=== PATIENT | male | born 1990 | race Asian ===

== ENCOUNTER 2019-02-16 03:18 | Emergency (ER) | payer OTHER ==
[~2019-02-16] VITALS: Ht 167.6 cm; Wt 68.0 kg
[2019-02-16 03:18] VITALS: BP 125/85
--- NOTE | 2019-02-16 03:20 | NUR ---
BROUGHT IN BY AMBULANCE FROM HOME FOR ALOC. PT. NOTED BY MOM TO BE ACTING BIZARRE,TALKING TO HIMSELF,AGITATED,UNABLE TO SLEEP. TOOK ZYPEXA 10 MG TABS 4 TABS 5HOURS INTERVALS. HIS USUAL DOSE IS ONLY 1 TABLET BID. TACHYCARDIC ON SCENE, REFUSED BLOOD SUGAR CHECK. [facility] PLACED IN BED 5,CHANGED INTO A GOWN AND HOOKED TO THE MONITOR. PT. ANSWERS APPROPRIATELY. ALERT,ORIENTED X 4. DENIES SUICIDAL IDEATION. Addendum: 02/16/19 at 0523 by [id number] *[id number]
--- NOTE | 2019-02-16 03:43 | NUR ---
CALLED UP POISON CONTROL AND TALKED TO LETI.TO OBSERVE PATIENT FOR 6 HOURS, FOR SEIZURE, DEPRESSION, EKG . LAB WORKS.
--- NOTE | 2019-02-16 03:46 | NUR ---
PT BELONGINGS ARE WITH PT MOM
--- NOTE | 2019-02-16 03:50 | NUR ---
MOM IS AT BEDSIDE WITH PT.
--- NOTE | 2019-02-16 03:51 | NUR ---
Note paris in EDM - 02/16/19 at 0425 by [id number] DISCHARGED STABLE. PRESCRIPTION,COPY OF LABS,VERBAL AND WRITTEN AFTERCARE INSTRCU==UCTIONS GIVEN TO PATIENT AND FAMILY. VERBALIZED UNDERSTANDING.
--- NOTE | 2019-02-16 04:09 | NUR ---
BLOOD DRAWN BY LAB.ANESTHESIOLOGISTS' ASSISTANT.
[2019-02-16 04:16] LABS: BASOPHILS % (AUTO) 0.5 % (0.0-2.0); EOSINOPHILS % (AUTO) 0.1 % (0.0-4.0); HEMOGLOBIN 17.7 g/dL (12.0-18.0); LYMPHOCYTES # (AUTO) 1.2 K/uL (2.0-11.5); LYMPHOCYTES % (AUTO) 15.5 % (20.5-51.1); MEAN CORPUSCULAR HEMOGLOBIN 31 pg (27-31); MEAN CORPUSCULAR HGB CONC 34 g/dL (33-37); MEAN CORPUSCULAR VOLUME 90.1 fL (80-94); MONOCYTES # (AUTO) 0.7 K/uL (0.8-1.0); MONOCYTES % (AUTO) 9.4 % (1.7-9.3); NEUTROPHILS # (AUTO) 5.8 K/uL (1.8-7.7); NEUTROPHILS % (AUTO) 74.5 % (42.2-75.2); PLATELET COUNT (AUTO) 292 K/uL (140-450); RED BLOOD CELL COUNT(AUTO) 5.77 MIL/uL (4.20-6.10); RED CELL DISTRIBUTION WIDTH 13.3 % (11.6-13.7); WHITE BLOOD COUNT (AUTO) 7.8 K/uL (4.8-10.8)
--- NOTE | 2019-02-16 04:18 | NUR ---
URINE SPECIMEN COLLECTED AND SENT TO THE LAB.
[2019-02-16 04:24] LABS: APPEARANCE,URINE CLEAR (CLEAR); BILIRUBIN,URINE NEGATIVE (NEGATIVE); BLOOD, URINE NEGATIVE (NEGATIVE); COLOR,URINE YELLOW (YELLOW); LEUKOCYTE ESTERASE ,URINE NEGATIVE (NEGATIVE); NITRITE, URINE NEGATIVE (NEGATIVE); UGLUCOSE NEGATIVE (NEGATIVE)
--- NOTE | 2019-02-16 04:25 | NUR ---
PT. BECAME AGITATED,ATTEMPTED GETTING OUT OF THE UNIT. ER-MD MADE AWARE. NEW ORDER GIVEN.
[2019-02-16] MEDS ORDERED: NACL 0.9% 1,000 ML IV ONE (04:30)
[2019-02-16 04:35] LABS: RBC,URINE 0-5 /HPF (0-5); WBC,URINE 0-5 /HPF (0-5)
--- NOTE | 2019-02-16 04:37 | NUR ---
GAUGE 18 IV LINE ESTABLISHED TO THE LEFT FOREARM. NS 1 LITER BOLUS GIVEN ORDERED.
[2019-02-16 04:41] LABS: BARBITURATE, URINE NEG. ng/ml (NEG <=200); BENZODIAZEPINE, URINE NEG. ng/mL (NEG <=200); CANNABINOID, URINE NEG. ng/mL (NEG <=50); COCAINE, URINE NEG. ng/mL (NEG <=300); OPIATE, URINE NEG. ng/mL (NEG <=2000); PHENCYCLIDINE SCREEN,URINE NEG. ng/mL (NEG <=25)
--- NOTE | 2019-02-16 04:55 | NUR ---
PT. PULLED OUT IV LINE. GAUGE 18 IV LINE ESTABLISHED TO THE LEFT HAND. IV FLUIDS RESTARTED.
[2019-02-16 05:01] LABS: ANION GAP 15.8 (8-16); CARBON DIOXIDE 21.8 mmol/L (21-32); CHLORIDE 104 mmol/L (98-107); CREATININE 1.2 mg/dL (0.7-1.3); GFR ARICAN-AMERICAN 91 mL/min (>90); GLUCOSE 128 mg/dL (74-106); POTASSIUM 3.6 mmol/L (3.5-5.1); SODIUM SERUM 138 mmol/L (136-145); UREA NITROGEN, BLOOD 12 mg/dL (7-18)
[2019-02-16 05:14] LABS: TOTAL BILIRUBIN 0.8 mg/dL (0.0-1.0)
[2019-02-16 05:15] LABS: ALBUMIN 3.9 g/dL (3.4-5.0)
[2019-02-16 05:16] LABS: ACETAMINOPHEN < 0.5 ug/ml (10-30)
--- NOTE | 2019-02-16 05:25 | NUR ---
PT.AGAIN PULLED OUT IV AND TRIED TO GET OUT OF BED. ER-MD MADE AWARE, CAME BY BEDSIDE TO RE-EVALUATE AND DISCUSS PLAN OF CARE WITH PT'S MOTHER. VS ARE OTHERWISE STABLE.
[2019-02-16 05:27] LABS: ASPARTATE AMINOTRANSFERASE 12 U/L (15-37); SALICYLATE < 2.8 mg/dL (2.8-20.0)
[2019-02-16] MEDS ORDERED: diphenhydrAMINE 50 MG/ML VIAL IM ONE (05:35)
[2019-02-16] MEDS ORDERED: LORazepam 2 MG/ML VIAL IM ONE (05:35)
--- NOTE | 2019-02-16 05:43 | NUR ---
ATIVAN 2 MG IM AND BENADRYL 50 MG IM GIVEN ORDERED FOR AGITATION.
--- NOTE | 2019-02-16 06:00 | NUR ---
LYNDSAY FROM [facility] CALLED BACK. UPDATE ON PATIENT GIVEN. SHE SAID TO FAX COPY OF 0269 MD LEROY'S NOTES,LABS.TO . PT. SLEEPING,NOT IN ACUTE DISTRESS. NO PAIN OR DISCOMFORT NOTED. VS REMAIN STABLE.
--- NOTE | 2019-02-16 07:00 | NUR ---
[facility] CALLED AND GOT UPDATE AND ADDITIONAL INFO ON PATIENT. SHE SAID SHE WILL TALK TO THE MD AND SHE WILL CALL BACK WHENEVER PT.HAS BEEN ACCEPTED. SHE ALSO SAID NO NEED TO GIVE REPORT PRIOR TO TRANSFERRING. PT. ASLEEP. REMAINS STABLE AND PAIN FREE. MOTHER AT BEDSIDE. WILL ENDORSE CARE TO AM SHIFT.
--- NOTE | 2019-02-16 07:10 | NUR ---
ENDORSED CARE TO AM SHIF NURSE MICHELLE THAKUR.
--- NOTE | 2019-02-16 07:10 | NUR ---
RECEIVED REPORT FRON UNIT MANAGER RN RN
--- NOTE | 2019-02-16 08:14 | NUR ---
PT RESTING IN BED, MOTHER AT BEDSIDE. PT AROUABLE TO NAME, VSS.
--- NOTE | 2019-02-16 08:47 | NUR ---
SPOKE WKimberly DONALD FROM [facility] AT THIS TIME, STATED HE WOULD BE INCONTACT WITH [facility] TO ARRANGE TRANSPORT
--- NOTE | 2019-02-16 09:09 | NUR ---
VAL FROM POISON CONTROL CALLED FOR FOLLOW UP ON PT.
--- NOTE | 2019-02-16 10:30 | NUR ---
SPOKE WITH BAIRON AT [facility] TO GIVE REPORT.
--- NOTE | 2019-02-16 10:50 | NUR ---
[facility] at bedside.
--- NOTE | 2019-02-16 10:53 | NUR ---
Patient to be transferred to [facility]. Is being transferred due to 5150 HOLD/PSYCH. Receiving facility has accepting physician and available space. ER physician has signed transfer form. Patient or responsible constitution party has agreed to transfer and signed form. Patient belongings inventoried and will be sent with patient. Copy of nursing notes, lab reports, EKG, Physicians Orders and X-rays to be sent with patient. Report called to BAIRON at receiving facility. [facility] ambulance service has been called for transfeR, AND HAS PICKED UP PT.
[2019-02-16 10:54] VITALS: BP 103/63
--- NOTE | 2019-02-19 07:37 | NUR ---
Late entry. Confirmed with RN that 0.9 NS 1000ml IV completed at 0600
== END 2019-02-16 10:53 ==
LOC: MED 03:18
DX: T43.591A Poisoning by other antipsychotics and neuroleptics, accidental (unintentional), initial encounter (principal); F15.90 Other stimulant use, unspecified, uncomplicated; F20.9 Schizophrenia, unspecified; Z88.8 Allergy status to other drugs, medicaments and biological substances; Y92.89 Other specified places as the place of occurrence of the external cause
CPT/HCPCS: 36415; 80053; 80305; 81001; 85025; 87086; 96372; 99285; G0480; G0482; J1200; J2060; J7030

== ENCOUNTER 2021-01-24 16:43 | Emergency (ER) | payer OTHER ==
[~2021-01-24] VITALS: Ht 170.2 cm; Wt 68.0 kg
[2021-01-24 16:43] VITALS: BP 134/72
--- NOTE | 2021-01-24 16:43 | NUR ---
BIBA TO BED 5
--- NOTE | 2021-01-24 17:02 | NUR ---
30 YO MALE BIBA FOR 5150 HOLD PER MEDICS MOTHER FOUND PATIENT WITH LACERATION TO L WRIST. PT PLACED ON 5150 HOLD BY [facility] FOR DTS. PER HOLD PT STATED THAT HE TRIED TO KILL HIMSELF. PER MOTHER PT HAS SUICIDE TENDENCIES. LACERATION IS APPROX 2 INCHES, BLEEDING CONTROLLED. PT REFUSING TO ANSWER ASSESSMENT QUESTIONS. PMH: BIPOLAR, SCHIZOPHRENIA ALLERGIES: RISPERIDONE.
--- NOTE | 2021-01-24 17:12 | NUR ---
SUICIDE RISK ASSESSMENT UNABLE TO BE OBTAINED PT REFUSING TO ANSWER QUESTIONS. WILL ATTEMPT AT A LATER TIME.
--- NOTE | 2021-01-24 17:34 | NUR ---
DR SALAZAR AT BEDSIDE EVALUATING PT.
--- NOTE | 2021-01-24 17:53 | NUR ---
IRRIGATED WITH NORMAL SALINE AND BETADINE. ERMD NOTIFIED
--- NOTE | 2021-01-24 18:00 | NUR ---
LAB SAMPLES DRAWN AND HANDED TO [employer] ECONOMIST
[2021-01-24 18:24] LABS: BASOPHILS % (AUTO) 0.2 % (0.0-2.0); EOSINOPHILS % (AUTO) 0.3 % (0.0-4.0); HEMATOCRIT 50.4 % (36-52); LYMPHOCYTES # (AUTO) 0.8 K/uL (2.0-11.5); LYMPHOCYTES % (AUTO) 11.9 % (20.5-51.1); MEAN CORPUSCULAR HEMOGLOBIN 31 pg (27-31); MEAN CORPUSCULAR HGB CONC 34 g/dL (33-37); MONOCYTES # (AUTO) 0.7 K/uL (0.8-1.0); MONOCYTES % (AUTO) 10.3 % (1.7-9.3); NEUTROPHILS # (AUTO) 5.3 K/uL (1.8-7.7); NEUTROPHILS % (AUTO) 77.3 % (42.2-75.2); PLATELET COUNT (AUTO) 313 K/uL (140-450); RED BLOOD CELL COUNT(AUTO) 5.54 MIL/uL (4.20-6.10); RED CELL DISTRIBUTION WIDTH 13.8 % (11.6-13.7); WHITE BLOOD COUNT (AUTO) 6.9 K/uL (4.8-10.8)
[2021-01-24 19:22] LABS: ALBUMIN 3.9 g/dL (3.4-5.0); ASPARTATE AMINOTRANSFERASE 23 U/L (15-37); CARBON DIOXIDE 23.9 mmol/L (21-32); CHLORIDE 101 mmol/L (98-107); CREATININE 1.1 mg/dL (0.6-1.3); GFR ARICAN-AMERICAN 100 mL/min (>90); GLUCOSE 115 mg/dL (74-106); POTASSIUM 3.9 mmol/L (3.5-5.1); SODIUM SERUM 139 mmol/L (136-145); THYROID STIMULATING HORMONE 0.84 uIU/mL (0.34-3.74); TOTAL BILIRUBIN 0.7 mg/dL (0.0-1.0); UREA NITROGEN, BLOOD 14 mg/dL (7-18)
--- NOTE | 2021-01-24 19:22 | NUR ---
REPORT AND TRANSFER OF CARE GIVEN TO OFE CASTELAN AT THIS TIME.
[2021-01-24 19:30] LABS: ACETAMINOPHEN < 0.5 ug/ml (10-30); SALICYLATE < 2.8 mg/dL (2.8-20.0)
[2021-01-24] MEDS ORDERED: LORazepam 2 MG/ML VIAL IVP ONE (19:35)
[2021-01-24] MEDS ORDERED: LORazepam 2 MG/ML VIAL IM ONE (19:55)
--- NOTE | 2021-01-24 20:00 | NUR ---
AWAKE, AMBULATED TO BR. FOOD OFFERED
--- NOTE | 2021-01-25 00:55 | NUR ---
RESTING IN BED WITH EYES CLOSED, RESPIRATIONS REGULAR AND UNLABORED
--- NOTE | 2021-01-25 04:00 | NUR ---
RESTING WITH EYES CLOSED, RESPIRATIONS REGULAR AND UNLABORED
--- NOTE | 2021-01-25 06:00 | NUR ---
RESTING WITH EYES CLOSED. AWAKENS WITH EASE FOR VS THEN RETURNS TO SLEEP. VOICES NO COMPLAINTS
--- NOTE | 2021-01-25 07:36 | NUR ---
REPORT RECEIVED FROM OFE CASTELAN. TRANSFER OF CARE RECIEVED
--- NOTE | 2021-01-25 09:43 | NUR ---
PT CURRENTLY SLEEPING BEDSIDE WITH EYES CLOSED. BED IN LOWEST POSITION WITH SIDERAIL X1 UP. EQUAL CHEST RISE AND FALL NOTED. WILL CONTINUE TO MONITOR. FOOD HAS BEEN LEFT BEDSIDE FOR PT
--- NOTE | 2021-01-25 13:17 | NUR ---
PT CURRENTLY RESTING WITH EYES CLOSED. EQUAL CHEST RISE AND FALL NOTED. MOTHER IS CURRENTLY BEDSIDE WITH PT. VITAL SIGNS STABLE. BED IN LOWEST POSITION WITH SIDERAIL X1 UP. WILL CONTINUE TO MONITOR
--- NOTE | 2021-01-25 15:28 | NUR ---
SPOKE WITH LIOR FROM [facility] IN BEHAVIORAL UNIT. PROVIDED REPORT ON PATIENT STATUS. PER LIOR ALEXANDER WILL LOOK FOR BED FOR PT TO BE TRANSFERED TO AND WILL PROVIDE ETA ONCE A BED HAS BEEN FOUND. PER LIOR 3855 AND CHART NEED TO BE FAXED OVER TO [phone] TO CONTINUE TO [facility] LOOKING FOR ROOM
--- NOTE | 2021-01-25 15:37 | NUR ---
PT CURRENTLY RESTING ON HIS SIDE WITH EYES OPEN. PT DENIES ANY PAIN AT THIS MOMENT. VITAL SIGNS STABLE. MOM STILL BEDSIDE WITH PT. BED IN LOWEST POSITION WITH SIDERAIL X1 UP. WILL CONTINUE TO MONITOR
--- NOTE | 2021-01-25 15:43 | NUR ---
ATTEMPTED TO DO SUICIDE RISK/LETHALITY ADMIN ASSESSMENT, BUT PT STILL REFUSES TO ANSWER QUESTIONS
--- NOTE | 2021-01-25 15:44 | NUR ---
MOM CURRENTLY FEEDING PT LUNCH BEDSIDE
--- NOTE | 2021-01-25 17:04 | NUR ---
pt ambualted to restroom. gait steady
--- NOTE | 2021-01-25 17:10 | NUR ---
PT AMBULATED TO ROOM 5. GAIT STEADY
--- NOTE | 2021-01-25 17:33 | NUR ---
PT CURRENTLY STANDING IN ROOM EATING EATS. PT DENIES ANY PAIN AND DENIES NEEDING ANYTHING AT THIS MOMENT. VITAL SIGNS STABLE. WILL CONTINUE TO MONITOR
--- NOTE | 2021-01-25 18:45 | NUR ---
SPOKE WITH ELLIOTT FROM [facility] IN REGARDS TO PLACEMENT FOR PT. REPORT HAS GUANAKO GIVEN AND PER ELLIOTT THEY WILL PROVIDE UPDATE WITH ACCEPTANCE OF PLACEMENT
--- NOTE | 2021-01-25 19:13 | NUR ---
Pt report given to OFE CASTELAN. Transfer of care at this time.
--- NOTE | 2021-01-25 20:28 | NUR ---
ATTEMPTING TO CALL REPORT TO EMILY MORGAN. PHONE PICKED UP THEN HUNG UP. ATTEMPT X 2
--- NOTE | 2021-01-25 20:28 | NUR ---
patient ambulated to the bathroom, looking slightly distressed and also walking around the room looking restless.
--- NOTE | 2021-01-25 20:30 | NUR ---
CALL TO [facility]. RECEIVED VOICEMAIL. MESSAGE LEFT
[2021-01-25 21:08] VITALS: BP 128/74
--- NOTE | 2021-01-25 21:08 | NUR ---
TRANSFERED [facility] TO [facility]. CHART COPIED AND SENT. REPORT WAS CALLED TO L[facility]
== END 2021-01-24 21:08 ==
LOC: MED 16:43
DX: S61.512A Laceration without foreign body of left wrist, initial encounter (principal); R45.851 Suicidal ideations; Z20.822 Contact with and (suspected) exposure to COVID-19; X78.8XXA Intentional self-harm by other sharp object, initial encounter; Y93.89 Activity, other specified; Y92.89 Other specified places as the place of occurrence of the external cause; Y99.8 Other external cause status
CPT/HCPCS: 80053; 84443; 85025; 87426; 96372; 99285; G0480; G0482; J2060; U0003